=== PATIENT | male | born 1990 | race African-American/Black ===

== ENCOUNTER 2016-12-09 23:22 | Emergency (ER) | payer OTHER ==
[~2016-12-09] VITALS: Ht 185.4 cm; Wt 88.9 kg
[2016-12-13 10:39] LABS: CHLAMYDIA TRACH Not Detected (Not Detected); N GONOR Not Detected (Not Detected)
== END 2016-12-10 01:11 | disposition home or self-care (01) ==
LOC: CED 23:22
DX: N34.2 Other urethritis (principal)
CPT/HCPCS: 87491; 87591; 96372; 99283; J0696